=== PATIENT | male | born 1970 | race Caucasian/White ===

== ENCOUNTER 2016-09-16 10:54 | Emergency (ER) | payer BC ==
--- NOTE | 2016-09-16 13:58 | DIAGNOSTIC IMAGING REPORT ---
PROCEDURE: XR CHEST 2 VIEW INDICATION: LEG EDEMA TECHNIQUE: PA and lateral views. COMPARISON: None. FINDINGS: Lungs are clear. Heart and mediastinum are normal. Thorax is normal. IMPRESSION: 1. Negative chest.
--- NOTE | 2016-09-16 15:23 | ED CLINICAL REPORT ---
Clinical Report - Physicians/Mid Levels [facility] [address] [place] [address] 09/16/2016 10:57 Patient: CHARLES PRAKASH Time Seen: 12:22 Sep 16 2016. Arrived- By private vehicle. Historian- patient. CPT: ER phys charges level 4 (#[id number]). HISTORY OF PRESENT ILLNESS Chief Complaint: LOWER EXTREMITY PAIN and SWELLING. Severity is described as being moderate. Quality not described as aching or "pain". 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 ( Pt with left foot and ankle swelling that started Thursday, right foot and ankle swelling began last night, denies cough, sob, fatigue, weight gain, and NKI). Symptoms located in the area of the left foot and left ankle. The patient has had swelling, but not had redness. No difficulty walking. No bladder dysfunction, bowel dysfunction, sensory loss or motor loss. Patient denies an injury. Similar symptoms previously: None. Recent medical care: Not recently seen/assessed. REVIEW OF SYSTEMS No cough, chest pain, difficulty breathing, fever or skin rash. No neck pain, back pain, sore throat, abdominal pain or vomiting. No diarrhea. has not missed any medication doses. All systems otherwise negative, except as recorded above. PAST HISTORY Hypertension. No history of heart disease, renal disease or GI disease. No history of chronic obstructive pulmonary disease, coronary artery disease, congestive heart failure or hepatitis. Medications: Simvastatin Oral. Hydrochlorothiazide Oral. Lisinopril Oral. Allergies: No Known Drug Allergy. SOCIAL HISTORY Heavy tobacco smoker (cigarette)- less than 1 pack per day. Alcohol use. History of drug use: marijuana. ADDITIONAL NOTES The nursing notes have been reviewed. PHYSICAL EXAM Vital Signs: 09/16/2016 11:12 BP: 169/101. HR: 107. RR: 18. O2 saturation: 98%. Temp: 98 F. Appearance: Alert. No acute distress. Eyes: Pupils equal, round and reactive to light. Eyes normal inspection. ENT: Ears normal. Nose normal. Pharynx normal. Neck: Normal inspection. Neck supple. CVS: Normal heart rate and rhythm. Heart sounds normal. Respiratory: No respiratory distress. Breath sounds normal. Abdomen: Soft and nontender. Back: Normal inspection. No tenderness. Skin: Skin intact. Skin warm. Normal skin color. Extremities: Lower extremities exhibit normal ROM. Bilateral mild 1+ edema of the lower extremities involving both feet. No calf tenderness. Extremities otherwise negative. Neuro, Vascular and Tendons: No pulse deficit present. Lower extremity capillary refill not prolonged. Gait: Normal gait. Neuro: Oriented X 3. No motor deficit. No sensory deficit. Reflexes normal. LABS, X-RAYS, AND EKG EKG: Normal EKG. Chest X-ray: Normal Chest X-Ray. Laboratory Tests: UA-Culture if indicated: (DENIA: 09/16/2016 14:25) ( [facility] [place] 14:39) Final results Test Result Flag Units (Reference) URINE COLOR YELLOW URINE APPEARANCE CLEAR URINE GLUCOSE NEGATIVE (NEGATIVE) URINE BILIRUBIN NEGATIVE (NEGATIVE) URINE KETONE NEGATIVE (NEGATIVE) URINE SPECIFIC GRAVITY 1.025 (1.010-1.030) URINE PH 5.5 (5.0-8.0) URINE PROTEIN NEGATIVE (NEGATIVE) URINE UROBILINOGEN 0.2 EU/dL (0.2-1.0) URINE NITRITE NEGATIVE (NEGATIVE) URINE BLOOD TRACE-LYSED (NEGATIVE) URINE LEUK ESTERASE NEGATIVE (NEGATIVE) URINE RBC 1-3 rbc/hpf (0-1) URINE WBC 0-1 wbc/hpf (0-1) URINE EPITHELIAL CELLS RARE EPI/hpf (0-5) URINE BACTERIA NONE SEEN (NONE SEEN) URINE COMMENT CULT NOT INDICATED 1+ MUCUSURINE CULTURES ARE SET-UP BASED ON THE FOLLOWING CRITERIA:POSITIVE NITRITEPOSITIVE LEUKOCYTE ESTERASEGREATER THAN 10 WHITE BLOOD CELLSMODERATE (2+) OR GREATER BACTERIA CBC w Diff: (DENIA: 09/16/2016 12:40) ( [facility] 09/16/2016 13:02) Final results Test Result Flag Units (Reference) WHITE BLOOD COUNT 9.2 K/uL (4.5-11.5) RED BLOOD COUNT 5.06 M/uL (4.50-5.90) HEMOGLOBIN 14.9 gm/dL (13.5-17.5) HEMATOCRIT 44.9 % (41.0-53.0) MEAN CELL VOLUME 89 fL (80-100) MEAN CORPUSCULAR HGB 29 pg (26-34) MEAN CORPUSCULAR HGB CONC 33 g/dL (31-37) RED CELL DISTRIBUTION WIDTH 12.4 % (11.6-14.8) PLATELET COUNT 369 K/uL (150-400) NEUTROPHIL % 56.7 % (50-75) LYMPH % 32.1 % (25-40) MONO % 10.0 % (3-14) EOSINOPHIL % 1.1 % (0-4) BASOPHIL % 0.1 % (0-2) [id number]: (DENIA: 09/16/2016 12:40) ( [facility] 09/16/2016 13:13) Final results Test Result Flag Units (Reference) D-DIMER QUANTITATIVE 0.37 ug/mLFEU (0.27-0.52) The primary value of this quantitative assay relates toits negative predictive value (i.e. exclusion) of pulmonaryembolism/deep vein thrombosis/DIC.Elevated levels of d-dimer may also occur with:, age, cancer, inflammation, liver disease,post-op, infection, hematoma, coronary disease, peripheralarteriopathy, bleeding disorders and thrombolytic treatment.Results should be correlated with other clinical andradiological data.Testing Methodology: Latex Immunoassay BNP: (DENIA: 09/16/2016 12:40) ( [facility] 09/16/2016 13:28) Final results Test Result Flag Units (Reference) B-TYPE NATRIURETIC PEPTIDE 14.6 pg/ml (5-100) CHEM 13 PANEL: (DENIA: 09/16/2016 12:40) ( [facility] 09/16/2016 14:07) Final results Test Result Flag Units (Reference) GLUCOSE 115 H mg/dL (70-110) BUN 11 mg/dL (7-18) CREATININE 0.8 mg/dL (0.6-1.3) Estimated GFR >60 mL/min Estimated GFR- >60 mL/min Note: Persistent reduction over 3 months in eGFR<60 mL/min/1.73 m2 defines CKD. Patients with eGFR values>=60 mL/min/1.73 m2 may also have CKD if evidence ofpersistent proteinuria. Additional information may be foundat www.kidney.org. SODIUM 140 mmol/L (136-145) POTASSIUM 4.2 mmol/L (3.5-5.1) CHLORIDE 102 mmol/L (98-107) CARBON DIOXIDE 24 mmol/L (21-32) CALCIUM 8.6 mg/dL (8.5-10.1) TOTAL PROTEIN 7.0 g/dL (6.4-8.2) ALBUMIN 3.7 g/dL (3.3-5.0) BILIRUBIN, TOTAL 0.5 mg/dL (0.0-1.0) ALKALINE PHOSPHATASE 70 U/L (46-116) AST (SGOT) 27 U/L (15-37) ALT (SGPT) 60 U/L (12-78) MAGNESIUM 1.8 mg/dL (1.8-2.4) CPK 156 U/L (24-260) TROPONIN I <0.05 ng/mL (0.00-1.5) TROPONIN REFERENCE RANGE:<0.1 NEGATIVE0.1-1.5 INDETERMINANT>1.5 POSITIVE THYROID STIMULATING HORMONE 0.834 uIU/mL (0.34-3.74) . PROGRESS AND PROCEDURES Course of Care: 15:24 09/16/16. Pt indicates that his HCTZ is 25 mg. Patient/family counseled. Disposition: Discharged. Condition: stable. CLINICAL IMPRESSION Bilateral pedal edema. INSTRUCTIONS You may walk and bear weight as tolerated. (Support stockings. Increase the HCTZ to 50 mg a day for 2 days only then go back to 25 mg a day. Avoid salt.). Warnings: Further evaluation is necessary. GENERAL WARNINGS: Return or contact your physician immediately if your condition worsens or changes unexpectedly, if not improving as expected, or if other problems arise. Your Current Medications: CONTINUE TAKING THE FOLLOWING MEDICATIONS: Hydrochlorothiazide Oral. Lisinopril Oral. Simvastatin Oral. Follow-up: Follow up with your doctor Thursday in three days. Call for an appointment. Understanding of the discharge instructions verbalized by patient and family. (Electronically signed by Geronimo Akhtar MD 09/20/2016 8:49)
--- NOTE | 2016-09-16 15:23 | ED ORDER SUMMARY ---
..... Patient: CHARLES PRAKASH OrderSheet [facility] VisitID: [id number] [address] [place] [address] 45y, M Registration Date/Time: 09/16/2016 ORDER SHEET Weight: 124.7 kg Allergies: No Known Drug Allergy GENERAL ORDERS: Vamp Maker (Continuous) (12:09/16/2016 Joie KING) (Ack 12:29 Prisca) (12:34 Hal) Chest 2V Urgent (12:09/16/2016 Joie KING) (Ack 12:29 Prisca) Cardiac Panel Stat (:09/16/2016 Joie KING) (Ack 12:29 Prisca) BNP Urgent (12:09/16/2016 Joie KING) (Ack 12:29 Prisca) D-Dimer Urgent (12:09/16/2016 Joie KING) (Ack 12:29 Prisca) TSH Urgent (12:09/16/2016 Joie KING) (Ack 12:29 Prisca) Pulse oximeter (12:09/16/2016 Joie KING) (Ack 12:29 Prisca) (12:34 Hal) EKG - ER Stat (:09/16/2016 Joie KING) (Ack 12:29 Prisca) (12:40 Prisca) UA-Culture if indicated Urgent (12:09/16/2016 Joie KING) (Ack 12:29 Prisca) (15:06 Reji) MEDICATION ORDERS: IV FLUIDS: IV Saline Lock (:09/16/2016 Joie KING) (12:45 Hal) ORDER SHEET NOTES: [Electronically signed by Antonieta Aguilar (15:31 09/16/2016)] [Electronically signed by Geronimo Akhtar MD (08:49 09/20/2016)] [Electronically locked/signed by Antonieta Aguilar (15:31 09/16/2016)]
--- NOTE | 2016-09-16 15:23 | ED ORDER SUMMARY ---
..... Patient: CHARLES PRAKASH OrderSheet [facility] VisitID: [id number] [address] [place] [address] 45y, M Registration Date/Time: 09/16/2016 ORDER SHEET Weight: 124.7 kg Allergies: No Known Drug Allergy GENERAL ORDERS: Inspector Chief (Continuous) (12:09/16/2016 Joie KING) (Ack 12:29 Prisca) (12:34 Hal) Chest 2V Urgent (12:09/16/2016 Joie KING) (Ack 12:29 Prisca) Cardiac Panel Stat (:09/16/2016 Joie KING) (Ack 12:29 Prisca) BNP Urgent (12:09/16/2016 Joie KING) (Ack 12:29 Prisca) D-Dimer Urgent (12:09/16/2016 Joie KING) (Ack 12:29 Prisca) TSH Urgent (12:09/16/2016 Joie KING) (Ack 12:29 Prisca) Pulse oximeter (12:09/16/2016 Joie KING) (Ack 12:29 Prisca) (12:34 Hal) EKG - ER Stat (:09/16/2016 Joie KING) (Ack 12:29 Prisca) (12:40 Prisca) UA-Culture if indicated Urgent (12:09/16/2016 Joie KING) (Ack 12:29 Prisca) (15:06 Reji) MEDICATION ORDERS: IV FLUIDS: IV Saline Lock (:09/16/2016 Joie KING) (12:45 Hal) ORDER SHEET NOTES: [Electronically signed by Antonieta Aguilar (15:31 09/16/2016)] [Electronically signed by Geronimo Akhtar MD (08:49 09/20/2016)] [Electronically locked/signed by Antonieta Aguilar (15:31 09/16/2016)]
--- NOTE | 2016-09-16 15:23 | ED CLINICAL REPORT ---
Clinical Report - Physicians/Mid Levels [facility] [address] [place] [address] 09/16/2016 10:57 Patient: CHARLES PRAKASH Time Seen: 12:22 Sep 16 2016. Arrived- By private vehicle. Historian- patient. CPT: ER phys charges level 4 (#[id number]). HISTORY OF PRESENT ILLNESS Chief Complaint: LOWER EXTREMITY PAIN and SWELLING. Severity is described as being moderate. Quality not described as aching or "pain". 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 ( Pt with left foot and ankle swelling that started Thursday, right foot and ankle swelling began last night, denies cough, sob, fatigue, weight gain, and NKI). Symptoms located in the area of the left foot and left ankle. The patient has had swelling, but not had redness. No difficulty walking. No bladder dysfunction, bowel dysfunction, sensory loss or motor loss. Patient denies an injury. Similar symptoms previously: None. Recent medical care: Not recently seen/assessed. REVIEW OF SYSTEMS No cough, chest pain, difficulty breathing, fever or skin rash. No neck pain, back pain, sore throat, abdominal pain or vomiting. No diarrhea. has not missed any medication doses. All systems otherwise negative, except as recorded above. PAST HISTORY Hypertension. No history of heart disease, renal disease or GI disease. No history of chronic obstructive pulmonary disease, coronary artery disease, congestive heart failure or hepatitis. Medications: Simvastatin Oral. Hydrochlorothiazide Oral. Lisinopril Oral. Allergies: No Known Drug Allergy. SOCIAL HISTORY Heavy tobacco smoker (cigarette)- less than 1 pack per day. Alcohol use. History of drug use: marijuana. ADDITIONAL NOTES The nursing notes have been reviewed. PHYSICAL EXAM Vital Signs: 09/16/2016 11:12 BP: 169/101. HR: 107. RR: 18. O2 saturation: 98%. Temp: 98 F. Appearance: Alert. No acute distress. Eyes: Pupils equal, round and reactive to light. Eyes normal inspection. ENT: Ears normal. Nose normal. Pharynx normal. Neck: Normal inspection. Neck supple. CVS: Normal heart rate and rhythm. Heart sounds normal. Respiratory: No respiratory distress. Breath sounds normal. Abdomen: Soft and nontender. Back: Normal inspection. No tenderness. Skin: Skin intact. Skin warm. Normal skin color. Extremities: Lower extremities exhibit normal ROM. Bilateral mild 1+ edema of the lower extremities involving both feet. No calf tenderness. Extremities otherwise negative. Neuro, Vascular and Tendons: No pulse deficit present. Lower extremity capillary refill not prolonged. Gait: Normal gait. Neuro: Oriented X 3. No motor deficit. No sensory deficit. Reflexes normal. LABS, X-RAYS, AND EKG EKG: Normal EKG. Chest X-ray: Normal Chest X-Ray. Laboratory Tests: UA-Culture if indicated: (DENIA: 09/16/2016 14:25) ( [facility] [place] 14[facility]39[facility] Final results Test Result Flag Units (Reference) URINE COLOR YELLOW URINE APPEARANCE CLEAR URINE GLUCOSE NEGATIVE (NEGATIVE) URINE BILIRUBIN NEGATIVE (NEGATIVE) URINE KETONE NEGATIVE (NEGATIVE) URINE SPECIFIC GRAVITY 1.025 (1.010-1.030) URINE PH 5.5 (5.0-8.0) URINE PROTEIN NEGATIVE (NEGATIVE) URINE UROBILINOGEN 0.2 EU/dL (0.2-1.0) URINE NITRITE NEGATIVE (NEGATIVE) URINE BLOOD TRACE-LYSED (NEGATIVE) URINE LEUK ESTERASE NEGATIVE (NEGATIVE) URINE RBC 1-3 rbc/hpf (0-1) URINE WBC 0-1 wbc/hpf (0-1) URINE EPITHELIAL CELLS RARE EPI/hpf (0-5) URINE BACTERIA NONE SEEN (NONE SEEN) URINE COMMENT CULT NOT INDICATED 1+ MUCUSURINE CULTURES ARE SET-UP BASED ON THE FOLLOWING CRITERIA:POSITIVE NITRITEPOSITIVE LEUKOCYTE ESTERASEGREATER THAN 10 WHITE BLOOD CELLSMODERATE (2+) OR GREATER BACTERIA CBC w Diff: (DENIA: 09/16/2016 12:40) ( [facility] 09/16/2016 13:02) Final results Test Result Flag Units (Reference) WHITE BLOOD COUNT 9.2 K/uL (4.5-11.5) RED BLOOD COUNT 5.06 M/uL (4.50-5.90) HEMOGLOBIN 14.9 gm/dL (13.5-17.5) HEMATOCRIT 44.9 % (41.0-53.0) MEAN CELL VOLUME 89 fL (80-100) MEAN CORPUSCULAR HGB 29 pg (26-34) MEAN CORPUSCULAR HGB CONC 33 g/dL (31-37) RED CELL DISTRIBUTION WIDTH 12.4 % (11.6-14.8) PLATELET COUNT 369 K/uL (150-400) NEUTROPHIL % 56.7 % (50-75) LYMPH % 32.1 % (25-40) MONO % 10.0 % (3-14) EOSINOPHIL % 1.1 % (0-4) BASOPHIL % 0.1 % (0-2) [id number]: (DENIA: 09/16/2016 12:40) ( [facility] 09/16/2016 13:13) Final results Test Result Flag Units (Reference) D-DIMER QUANTITATIVE 0.37 ug/mLFEU (0.27-0.52) The primary value of this quantitative assay relates toits negative predictive value (i.e. exclusion) of pulmonaryembolism/deep vein thrombosis/DIC.Elevated levels of d-dimer may also occur with:, age, cancer, inflammation, liver disease,post-op, infection, hematoma, coronary disease, peripheralarteriopathy, bleeding disorders and thrombolytic treatment.Results should be correlated with other clinical andradiological data.Testing Methodology: Latex Immunoassay BNP: (DENIA: 09/16/2016 12:40) ( [facility] 09/16/2016 13:28) Final results Test Result Flag Units (Reference) B-TYPE NATRIURETIC PEPTIDE 14.6 pg/ml (5-100) CHEM 13 PANEL: (DENIA: 09/16/2016 12:40) ( [facility] 09/16/2016 14:07) Final results Test Result Flag Units (Reference) GLUCOSE 115 H mg/dL (70-110) BUN 11 mg/dL (7-18) CREATININE 0.8 mg/dL (0.6-1.3) Estimated GFR >60 mL/min Estimated GFR- >60 mL/min Note: Persistent reduction over 3 months in eGFR<60 mL/min/1.73 m2 defines CKD. Patients with eGFR values>=60 mL/min/1.73 m2 may also have CKD if evidence ofpersistent proteinuria. Additional information may be foundat www.kidney.org. SODIUM 140 mmol/L (136-145) POTASSIUM 4.2 mmol/L (3.5-5.1) CHLORIDE 102 mmol/L (98-107) CARBON DIOXIDE 24 mmol/L (21-32) CALCIUM 8.6 mg/dL (8.5-10.1) TOTAL PROTEIN 7.0 g/dL (6.4-8.2) ALBUMIN 3.7 g/dL (3.3-5.0) BILIRUBIN, TOTAL 0.5 mg/dL (0.0-1.0) ALKALINE PHOSPHATASE 70 U/L (46-116) AST (SGOT) 27 U/L (15-37) ALT (SGPT) 60 U/L (12-78) MAGNESIUM 1.8 mg/dL (1.8-2.4) CPK 156 U/L (24-260) TROPONIN I <0.05 ng/mL (0.00-1.5) TROPONIN REFERENCE RANGE:<0.1 NEGATIVE0.1-1.5 INDETERMINANT>1.5 POSITIVE THYROID STIMULATING HORMONE 0.834 uIU/mL (0.34-3.74) . PROGRESS AND PROCEDURES Course of Care: 15:24 09/16/16. Pt indicates that his HCTZ is 25 mg. Patient/family counseled. Disposition: Discharged. Condition: stable. CLINICAL IMPRESSION Bilateral pedal edema. INSTRUCTIONS You may walk and bear weight as tolerated. (Support stockings. Increase the HCTZ to 50 mg a day for 2 days only then go back to 25 mg a day. Avoid salt.). Warnings: Further evaluation is necessary. GENERAL WARNINGS: Return or contact your physician immediately if your condition worsens or changes unexpectedly, if not improving as expected, or if other problems arise. Your Current Medications: CONTINUE TAKING THE FOLLOWING MEDICATIONS: Hydrochlorothiazide Oral. Lisinopril Oral. Simvastatin Oral. Follow-up: Follow up with your doctor Thursday in three days. Call for an appointment. Understanding of the discharge instructions verbalized by patient and family. (Electronically signed by Geronimo Akhtar MD 09/20/2016 8:49)
--- NOTE | 2016-09-16 15:23 | ED NURSING NOTES ---
Clinical Report - Nurses Merged With [facility] [address] [place] [address] 09/16/2016 10:57 Patient: CHARLES PRAKASH TRIAGE Triage time 1105. Acuity: LEVEL 3. Chief Complaint: RIGHT LOWER EXTREMITY SWELLING. LEFT LOWER EXTREMITY SWELLING. Alert. No acute distress. --11:16 Antonieta Aguilar 11:12 09/16/16. BP: 169/101. HR: 107. RR: 18. O2 saturation: 98%. Temp: 98 F. Pain level now 10/31. --11:16 Antonieta Aguilar. Weight: 124.7 kg. Height/Length: 69 inches. BMI: 40.6. --11:12 Antonieta Aguilar. Medications Lisinopril Oral. --11:13 Antonieta Aguilar Hydrochlorothiazide Oral. --11:13 Antonieta Aguilar Simvastatin Oral. --11:13 Antonieta Aguilar. Allergies No Known Drug Allergy. --11:14 Antonieta Aguilar. History Arrived by private vehicle. Historian: patient. No injury occurred. This occurred (2 days ago). ( Pt with left foot and ankle swelling that started Thursday, right foot and ankle swelling began last night, denies cough, sob, fatigue, weight gain, and NKI). SOCIAL HX: Current every day heavy tobacco smoker, start date 1986 (cigarette)- less than 1 pack per day. Regular alcohol use; consumes beer daily. History of drug use: marijuana. Recently used drugs yesterday. --11:16 Antonieta Aguilar. PROBLEMS: Hypertension. Elevated Cholesterol. --11:14 Antonieta Aguilar. ADDITIONAL SURGERIES: Umbilical Hernia Repair. --11:14 Antonieta Aguilar. Interventions ID band on patient. To treatment room. --11:16 Antonieta Aguilar. PHYSICAL ASSESSMENT Ambulatory to room. GENERAL / NEURO / PSYCH: Oriented X 4. Alert. Appears in no acute distress. EXTREMITIES: Lower extremity edema. Extremity pulses are within normal limits. Extremities exhibit normal ROM. Neuro-vascular status intact to the extremity. Normal gait. Right ankle: swelling. Right foot: swelling. Left ankle: swelling. Left foot: swelling. SKIN: Skin intact. Skin is warm and dry. --11:17 Antonieta Aguilar. NURSING PROGRESS NOTES EKG time: (12:37). EKG was ordered, performed by a tech and shown to the ED physician. --12:40 Gary De La Cruz 12:45 09/16/2016 Site #1 started via IV in the right antecubital space with an 20g angiocath, with aseptic technique and good blood return; one attempt. Blood drawn: rainbow set. Labeled in the presence of the patient and sent to the lab. Saline lock flushed with 10 mL saline. --12:45 Antonieta Aguilar. DISPOSITION / DISCHARGE Condition at departure: unchanged and stable. No learning barriers present. Discharge instructions provided and reviewed with the patient. Patient verbalized understanding. Written instructions provided in Nigerien. The patient was discharged by the physician. He was discharged home and accompanied by parent. He left the Emergency Department ambulatory and via private vehicle. Parent driving. --15:25 Antonieta Aguilar 15:24 09/16/16. BP: 164/100. HR: 105. RR: 16. O2 saturation: 97%. --15:25 Antonieta Aguilar 15:25 09/16/2016 Site #1 removed upon discharge. Pressure dressing applied. --15:25 Antonieta Aguilar Departure time: 1530. --15:31 Antonieta Aguilar. Locked/Released at 09/16/2016 15:31 by Antonieta Aguilar,
--- NOTE | 2016-09-16 15:23 | ED NURSING NOTES ---
Clinical Report - Nurses [facility] [address] [place] [address] 09/16/2016 10:57 Patient: CHARLES PRAKASH TRIAGE Triage time 1105. Acuity: LEVEL 3. Chief Complaint: RIGHT LOWER EXTREMITY SWELLING. LEFT LOWER EXTREMITY SWELLING. Alert. No acute distress. --11:16 Antonieta Aguilar 11:12 09/16/16. BP: 169/101. HR: 107. RR: 18. O2 saturation: 98%. Temp: 98 F. Pain level now 10/31. --11:16 Antonieta Aguilar. Weight: 124.7 kg. Height/Length: 69 inches. BMI: 40.6. --11:12 Antonieta Aguilar. Medications Lisinopril Oral. --11:13 Antonieta Aguilar Hydrochlorothiazide Oral. --11:13 Antonieta Aguilar Simvastatin Oral. --11:13 Antonieta Aguilar. Allergies No Known Drug Allergy. --11:14 Antonieta Aguilar. History Arrived by private vehicle. Historian: patient. No injury occurred. This occurred (2 days ago). ( Pt with left foot and ankle swelling that started Thursday, right foot and ankle swelling began last night, denies cough, sob, fatigue, weight gain, and NKI). SOCIAL HX: Current every day heavy tobacco smoker, start date 1986 (cigarette)- less than 1 pack per day. Regular alcohol use; consumes beer daily. History of drug use: marijuana. Recently used drugs yesterday. --11:16 Antonieta Aguilar. PROBLEMS: Hypertension. Elevated Cholesterol. --11:14 Antonieta Aguilar. ADDITIONAL SURGERIES: Umbilical Hernia Repair. --11:14 Antonieta Aguilar. Interventions ID band on patient. To treatment room. --11:16 Antonieta Aguilar. PHYSICAL ASSESSMENT Ambulatory to room. GENERAL / NEURO / PSYCH: Oriented X 4. Alert. Appears in no acute distress. EXTREMITIES: Lower extremity edema. Extremity pulses are within normal limits. Extremities exhibit normal ROM. Neuro-vascular status intact to the extremity. Normal gait. Right ankle: swelling. Right foot: swelling. Left ankle: swelling. Left foot: swelling. SKIN: Skin intact. Skin is warm and dry. --11:17 Antonieta Aguilar. NURSING PROGRESS NOTES EKG time: (12:37). EKG was ordered, performed by a tech and shown to the ED physician. --12:40 Gary De La Cruz 12:45 09/16/2016 Site #1 started via IV in the right antecubital space with an 20g angiocath, with aseptic technique and good blood return; one attempt. Blood drawn: rainbow set. Labeled in the presence of the patient and sent to the lab. Saline lock flushed with 10 mL saline. --12:45 Antonieta Aguilar. DISPOSITION / DISCHARGE Condition at departure: unchanged and stable. No learning barriers present. Discharge instructions provided and reviewed with the patient. Patient verbalized understanding. Written instructions provided in [place] Islander. The patient was discharged by the physician. He was discharged home and accompanied by parent. He left the Emergency Department ambulatory and via private vehicle. Parent driving. --15:25 Antonieta Aguilar 15:24 09/16/16. BP: 164/100. HR: 105. RR: 16. O2 saturation: 97%. --15:25 Antonieta Aguilar 15:25 09/16/2016 Site #1 removed upon discharge. Pressure dressing applied. --15:25 Antonieta Aguilar Departure time: 1530. --15:31 Antonieta Aguilar. Locked/Released at 09/16/2016 15:31 by Antonieta Aguilar,
--- NOTE | 2016-09-20 08:49 | ED MAR SUMMARY ---
..... Medication Administration Record [facility] [address] [place] [id number] Patient: CHARLES PRAKASH Visit ID: [id number] 45y, M Weight: 124.7 kg Height/Length: 69 in BMI: 40.6 ALLERGIES: No Known Drug Allergy
--- NOTE | 2016-09-20 08:49 | ED DISCHARGE INSTRUCTIONS ---
Patient: CHARLES PRAKASH General Instructions [facility] VisitID: [id number] [address] [place] [address] 45y, M Registration Date/Time: 09/16/2016 Bilateral pedal edema. INSTRUCTIONS You may walk and bear weight as tolerated. (Support stockings. Increase the HCTZ to 50 mg a day for 2 days only then go back to 25 mg a day. Avoid salt.). Warnings: Further evaluation is necessary. GENERAL WARNINGS: Return or contact your physician immediately if your condition worsens or changes unexpectedly, if not improving as expected, or if other problems arise. Your Current Medications: CONTINUE TAKING THE FOLLOWING MEDICATIONS: Hydrochlorothiazide Oral. Lisinopril Oral. Simvastatin Oral. Follow-up: Follow up with your doctor Thursday in three days. Call for an appointment. Understanding of the discharge instructions verbalized by patient and family. You may walk and bear weight as tolerated. (Electronically signed by Geronimo Akhtar MD 09/20/2016 8:49)
--- NOTE | 2016-09-20 08:49 | ED MED RECONCILIATION SUMMARY ---
Patient: CHARLES PRAKASH Medication Reconciliation Report [facility] VisitID: [id number] [address] [place] [address] 45y, M Registration Date/Time: 09/16/2016 Weight: 124.7 kg Height/Length: 69 in. BMI: 40.6 ALLERGIES: No Known Drug Allergy The patient's Home Medications are listed below: CONTINUE TAKING THE FOLLOWING MEDICATIONS: Hydrochlorothiazide Oral Lisinopril Oral Simvastatin Oral The source(s) of the original Home Medication information: Not obtained. The following Medications were given to the patient in the Emergency Department: None. The following Medications were prescribed to the patient: None.
--- NOTE | 2016-09-20 08:49 | ED MAR SUMMARY ---
..... Medication Administration Record [facility] [address] [id number] Patient: CHARLES PRAKASH Visit ID: [id number] 45y, M Weight: 124.7 kg Height/Length: 69 in BMI: 40.6 ALLERGIES: No Known Drug Allergy
--- NOTE | 2016-09-20 08:49 | ED MED RECONCILIATION SUMMARY ---
Patient: CHARLES PRAKASH Medication Reconciliation Report [facility] VisitID: [id number] [address] [place] [address] 45y, M Registration Date/Time: 09/16/2016 Weight: 124.7 kg Height/Length: 69 in. BMI: 40.6 ALLERGIES: No Known Drug Allergy The patient's Home Medications are listed below: CONTINUE TAKING THE FOLLOWING MEDICATIONS: Hydrochlorothiazide Oral Lisinopril Oral Simvastatin Oral The source(s) of the original Home Medication information: Not obtained. The following Medications were given to the patient in the Emergency Department: None. The following Medications were prescribed to the patient: None.
--- NOTE | 2016-09-20 08:49 | ED DISCHARGE INSTRUCTIONS ---
Patient: CHARLES PRAKASH General Instructions [facility] VisitID: [id number] [address] [place] [address] 45y, M Registration Date/Time: 09/16/2016 Bilateral pedal edema. INSTRUCTIONS You may walk and bear weight as tolerated. (Support stockings. Increase the HCTZ to 50 mg a day for 2 days only then go back to 25 mg a day. Avoid salt.). Warnings: Further evaluation is necessary. GENERAL WARNINGS: Return or contact your physician immediately if your condition worsens or changes unexpectedly, if not improving as expected, or if other problems arise. Your Current Medications: CONTINUE TAKING THE FOLLOWING MEDICATIONS: Hydrochlorothiazide Oral. Lisinopril Oral. Simvastatin Oral. Follow-up: Follow up with your doctor Thursday in three days. Call for an appointment. Understanding of the discharge instructions verbalized by patient and family. You may walk and bear weight as tolerated. (Electronically signed by Geronimo Akhtar MD 09/20/2016 8:49)
== END 2016-09-16 15:31 | disposition home or self-care (01) ==
LOC: ED SRH 10:54
DX: R60.0 Localized edema (principal); I10 Essential (primary) hypertension; Z79.899 Other long term (current) drug therapy; F17.210 Nicotine dependence, cigarettes, uncomplicated
CPT/HCPCS: 90004; 90100; 90616; 91320; 91556; 92610; 92720; 93140; 95059